=== PATIENT | male | born 1975 | race African-American/Black ===

== ENCOUNTER 2021-12-31 14:18 | Emergency (ER) | payer OTHER, SELFPAY ==
[2021-12-31] MEDS ORDERED: Ketorolac Tromethamine 30 MG/ML VIAL ONE (15:16)
== END 2021-12-31 15:44 | disposition home or self-care (01) ==
LOC: CSHERS 14:18
DX: M54.50 Low back pain, unspecified (principal); I10 Essential (primary) hypertension; Z87.891 Personal history of nicotine dependence; X50.0XXA Overexertion from strenuous movement or load, initial encounter; Y92.89 Other specified places as the place of occurrence of the external cause; Y99.0 Civilian activity done for income or pay
CPT/HCPCS: 96372; 99283; J1885

== ENCOUNTER 2023-01-29 16:56 | Emergency (ER) | payer OTHER, SELFPAY ==
[2023-01-29 18:17] LABS: SARS-CoV-2 NAA Rapid Test Not Detected (NotDetected)
== END 2023-01-29 19:39 | disposition home or self-care (01) ==
LOC: CSHERS 16:56
DX: J06.9 Acute upper respiratory infection, unspecified (principal); R51.9 Headache, unspecified; I10 Essential (primary) hypertension; Z20.822 Contact with and (suspected) exposure to COVID-19
CPT/HCPCS: 99283